=== PATIENT | male | born 1980 | race Caucasian/White ===

== ENCOUNTER 2022-05-07 08:29 | Emergency (ER) | payer SELFPAY ==
[~2022-05-07] VITALS: Ht 182.9 cm; Wt 108.9 kg
--- NOTE | 2022-05-07 08:29 | NUR ---
BIBRA 89 FROM HOME C/O CHEST PRESSURE STARTED 2HOURS AGO, UNPROVOKED, NON-RADIATING. PAIN IS 7/10 ONPAIN SCALE UPON ARRIVAL. STATED THAT PAIN WAS INITIALLY 7/10 WAS GIVEN 325MG ASA AND 1.2 NITRO BY EMS GIVEN PRIOR TO ARRIVAL AND PAIN WENT DOWN TO 4/10 ON PAIN SCALE FOR A FEW MINUTES PER PT. PT ATTACHED TO MONITOR, BLOOD PRESSURE ELEVATED. PT HAS HX OF HYPERTENSION, DOES NOT TAKE MEDICATION FOR IT. DR HERRERA AT BEDSIDE, AWAITING MD ORDERS.
--- NOTE | 2022-05-07 08:53 | NUR ---
EKG DONE AT BED SIDE
--- NOTE | 2022-05-07 09:00 | NUR ---
C XRAY DONE AT BED SIDE
--- NOTE | 2022-05-07 09:15 | NUR ---
BLOOD DROW BY lab tach at bed side
[2022-05-07 09:25] LABS: BASOPHILS # (AUTO) 0.1 K/uL (0.0-0.2); BASOPHILS % (AUTO) 0.6 % (0.0-2.0); EOSINOPHILS % (AUTO) 1.6 % (0.0-6.0); HEMATOCRIT 42 % (39-51); HEMOGLOBIN 14.4 g/dL (13.5-17.5); LYMPHOCYTES # (AUTO) 2.5 K/uL (0.8-4.8); LYMPHOCYTES % (AUTO) 26.6 % (20.0-44.0); MEAN CORPUSCULAR HGB CONC 34 g/dl (31.0-36.0); MEAN CORPUSCULAR VOLUME 86 fL (80-96); MONOCYTES # (AUTO) 0.5 K/uL (0.1-1.30); MONOCYTES % (AUTO) 5.5 % (2.0-12.0); NEUTROPHILS # (AUTO) 6.1 K/uL (1.8-8.9); NEUTROPHILS % (AUTO) 65.7 % (43.0-81.0); PLATELET COUNT (AUTO) 208 K/uL (150-450); RED BLOOD CELL COUNT(AUTO) 4.89 MIL/uL (4.5-6.0); WHITE BLOOD COUNT (AUTO) 9.3 K/uL (4.3-11.0)
--- NOTE | 2022-05-07 09:38 | NUR ---
MILD CHEST PAIN 2/10 NO SOB
[2022-05-07 09:39] LABS: CALCIUM, SERUM 8.9 mg/dL (8.5-10.1); CARBON DIOXIDE 26 mmol/L (21-32); CHLORIDE 106 mmol/L (98-107); CREATININE 0.9 mg/dL (0.6-1.3); GLUCOSE 101 mg/dL (74-106); POTASSIUM 3.8 mmol/L (3.5-5.1); SODIUM SERUM 139 mmol/L (136-145); UREA NITROGEN, BLOOD 13 mg/dL (7-18)
--- NOTE | 2022-05-07 11:00 | NUR ---
blood drow for reapeat troponin
[2022-05-07] MEDS ORDERED: IBUPROFEN 600 MG TABLET ONE (11:09)
[2022-05-07] MEDS: IBUPROFEN 600 MG TABLET PO ONE (11:11)
[2022-05-07] MEDS ORDERED: AMLO-212 PO (11:53)
[2022-05-07] MEDS ORDERED: IBUP-1955 PO (11:53)
--- NOTE | 2022-05-07 12:00 | NUR ---
IV removed. Catheter intact and site benign. Pressure and 4x4 applied to site. No bleeding noted.
[2022-05-07] MEDS ORDERED: AMLODIPINE BESYLATE 5 MG TABLET ONE (12:01)
--- NOTE | 2022-05-07 12:03 | NUR ---
DR HERRERA refused NORVAS PO
[2022-05-07] MEDS: AMLODIPINE BESYLATE 5 MG TABLET PO ONE (12:04)
--- NOTE | 2022-05-07 12:05 | NUR ---
Patient discharged to home in stable condition. Written and verbal after care instructions given. Patient verbalizes understanding of instruction.
[2022-05-07 12:08] VITALS: BP 153/87
== END 2022-05-07 12:08 | disposition home or self-care (01) ==
LOC: ER 08:36
DX: R07.89 Other chest pain (principal); I10 Essential (primary) hypertension; F17.200 Nicotine dependence, unspecified, uncomplicated
CPT/HCPCS: 36415; 71045-TC; 80048-TC; 84484-TC; 85025-TC